=== PATIENT | male | born 1955 | race African-American/Black ===

== ENCOUNTER 2017-11-18 19:19 | Emergency (ER) | payer OTHER ==
--- NOTE | 2017-11-18 19:27 | PDOC ---
History of Present Illness - History of Present Illness Initial Comments: 11/18/17 19:52 The patient is a 62 year old male, with no significant past medical history, who presents to the emergency department with, left great toe pain and swelling. As per patient, his pain onset today and his pain is localized to the plantar great toe. 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 He denies any erythema or warmth to the area. He denies any history of gout. He denies any recent fevers, chills, headache or dizziness. He denies any recent nausea, vomit, diarrhea or constipation. He denies any recent chest pain or shortness of breath. He denies any recent dysuria, frequency, urgency or hematuria. PAST MEDICAL HISTORY: no significant history PAST SURGICAL HISTORY: no significant history FAMILY HISTORY: no pertinent history SOCIAL HISTORY: Pt lives with family and is employed. MEDICATIONS: reviewed ALLERGIES: As per nursing notes ROS: General: No fevers or chills, no weakness, no weight loss HEENT: No change in vision. No sore throat,. No ear pain CardioVascular: No chest pain or shortness of breath Respiratory:No cough, or wheezing. Gastrointestinal: no nausea, vomiting, diarrhea or constipation, No rectal bleeding Genitourinary: No dysuria, hematuria, or frequency +Musculoskeletal: Left great toe pain and swelling. No muscle pain or swelling Neurologic: No headache, vertigo, dizziness or loss of consciousness Psychiatric: nor depression Skin: No rashes or easy bruising Endocrine: no increased thirst or abnormal weight change Allergic: no skin or latex allergy All other systems reviewed and normal Physical Exam: GENERAL: The patient is awake, alert, and fully oriented, in no acute distress. HEAD: Normal with no signs of trauma. EYES: Pupils equal, round and reactive to light, extraocular movements intact, sclera anicteric, conjunctiva clear. +EXTREMITIES: Left Foot: Mild left great toe plantar tenderness without erythema , ecchymosis, or warmth. Normal capillary refill. Normal range of motion, no edema. NEUROLOGICAL: Normal speech, normal gait. PSYCH: Normal mood, normal affect. SKIN: Warm, Dry, normal turgor, no rashes or lesions noted. <Dalia Sanchez - Last Filed: 11/18/17 19:52> - General History Source: Patient Exam Limitations: No Limitations - History of Present Illness Initial Comments: 11/18/17 20:19 A portion of this note was documented by scribe services under my direction. I have reviewed the details of the note, within reason, and agree with the documentation. The case summary and management plan written by me. X-ray no acute fracture or pathology there is some degenerative changes to the joint laterally Assessment and plan: This is a 8-year-old male comes in complaining of toe pain on his left great toe. Patient has a uric acid level that was normal. A x-ray was done of his toe that was negative for any acute pathology it does show some degenerative/arthritic type changes however. Patient was given an anti- inflammatory here in the emergency room. Patient referred to Dr. Bhandari for follow-up. 11/18/17 20:21 <Isaiah Quiles I - Last Filed: 11/18/17 20:24> - General Chief Complaint: Pain Stated Complaint: L TOE PAIN Time Seen by Provider: 11/18/17 19:27 Past History <Dalia Sanchez - Last Filed: 11/18/17 19:52> - Past Medical History Asthma: No COPD: No Diabetes: No HTN: No Hypercholesterolemia: Yes - Suicide/Smoking/Psychosocial Hx Smoking Status: No Smoking History: Never smoked Have you smoked in the past 12 months: No Number of Cigarettes Smoked Daily: 0 Information on smoking cessation initiated: No Hx Alcohol Use: No Drug/Substance Use Hx: No Substance Use Type: None <Isaiah Quiles I - Last Filed: 11/18/17 20:24> - Past Medical History Allergies/Adverse Reactions: Allergies Allergy/AdvReac Type Severity Reaction Status Date / Time No Known Allergies Allergy Unverified 05/20/13 19:34 Home Medications: Ambulatory Orders Aspirin [ASA -] 81 mg PO DAILY 11/18/17 *Physical Exam - Vital Signs Last Vital Signs Temp Pulse Resp BP Pulse Ox 98.2 F 60 14 147/87 100 11/18/17 19:23 11/18/17 19:23 11/18/17 19:23 11/18/17 19:23 11/18/17 19:23 <Dalia Sanchez - Last Filed: 11/18/17 19:52> - Vital Signs Last Vital Signs Temp Pulse Resp BP Pulse Ox 98.2 F 60 14 147/87 100 11/18/17 19:23 11/18/17 19:23 11/18/17 19:23 11/18/17 19:23 11/18/17 19:23 <Isaiah Quiles I - Last Filed: 11/18/17 20:24> ED Treatment Course - Medications Given in the ED: ED Medications Discontinued Medications Generic Name Dose Route Start Last Admin Trade Name Jean-Paul PRN Reason Stop Dose Admin Ketorolac Tromethamine 60 mg 11/18/17 19:33 11/18/17 19:38 Toradol Injection - IM 11/18/17 19:34 60 mg ONCE ONE Administration <Dalia Sanchez - Last Filed: 11/18/17 19:52> - LABORATORY CBC & Chemistry Diagram: 11/18/17 19:50 <Isaiah Quiles I - Last Filed: 11/18/17 20:24> *DC/Admit/Observation/Transfer - Attestations Scribe Attestion: 11/18/17 19:52 Documentation prepared by Dalia Sanchez, acting as medical scheduler for Isaiah Quiles MD. <Dalia Sanchez - Last Filed: 11/18/17 19:52> - Discharge Dispostion Decision to Admit order: No <Isaiah Quiles I - Last Filed: 11/18/17 20:24> Diagnosis at time of Disposition: Pain of left great toe - Discharge Dispostion Disposition: HOME Condition at time of disposition: Good - Referrals Referrals: Sukhjinder Bhandari MD [Staff Physician] - - Patient Instructions Additional Instructions: For the pain take Tylenol or ibuprofen as prescribed on the bottle. Follow-up with Dr. Bhandari call his office for an appointment in the morning. Return to the emergency department immediately with ANY new, persistent or worsening symptoms. Continue any medications as previously prescribed by your physician. You should follow up with your primary doctor as soon as possible regarding today's emergency department visit. . Please make sure your doctor reviews the results of your emergency evaluation. Thank you for coming to the Emergency Department today for your care. It was a pleasure to see you today. Please note that your evaluation is INCOMPLETE until you follow-up with your doctor.
[2017-11-18 19:28] VITALS: BP 147/87; PULSE 60; TEMP 98.2; BMI 23.0
[2017-11-18] MEDS ORDERED: KETOROLAC TROMETHAMINE 60 MG/2 ML VIAL IM ONE (19:33)
[2017-11-18] MEDS ORDERED: KETOROLAC TROMETHAMINE 60 MG/2 ML VIAL ONE (19:42)
[2017-11-18 20:11] LABS: BASO % 0.7 % (0-2.0); EOS % 1.8 % (0-4.5); HEMATOCRIT 41.6 % (35.4-49); HEMOGLOBIN 13.5 GM/dl (11.7-16.9); MCHC 32.3 g/dl (32.0-35.9); MEAN CELL VOLUME 86.4 fl (80-96); MEAN PLT VOLUME 8.1 fl (7.5-11.1); MONO % 5.7 % (3.8-10.2); NEUT % 57.8 % (42.8-82.8); PLATELET COUNT 270 K/MM3 (134-434); RBC 4.82 M/mm3 (4.00-5.60); RDW 12.4 % (11.9-15.9); WHITE BLOOD COUNT 8.3 K/mm3 (4.0-10.8)
== END 2017-11-18 20:47 | disposition home or self-care (01) ==
LOC: FER 19:19
PROC: 3E0233Z Introduction of Anti-inflammatory into Muscle, Percutaneous Approach (ICD-10-PCS; principal; 2017-11-18)
DX: M79.675 Pain in left toe(s) (principal); E78.00 Pure hypercholesterolemia, unspecified
CPT/HCPCS: 36415; 73660-TC-LT-FY; 84550; 85025; 99283-25